=== PATIENT | male | born 1980 | race Caucasian/White ===

== ENCOUNTER → 2020-04-21 16:12 | Outpatient (CLI) | payer BC, SELFPAY ==
--- NOTE | ~2020-04-21 | XR_ITS ---
EXAMINATION: XR thoracic spine 3V DATE: 04/21/2020 18:01 INDICATION: Dorsalgia. TECHNIQUE: 3 views of thoracic spine were obtained. COMPARISON: None. FINDINGS: There is 8 degrees levocurvature of upper thoracic spine. Vertebral body heights and interv ertebral disc heights are normal. There are endplate osteophytes at multiple levels. IMPRESSION: 1. Mild thoracic spondylosis. Reviewed, dictated and finalized at location A.
--- NOTE | ~2020-04-21 | XR_ITS ---
EXAMINATION: XR lumbar spine 2-3V DATE: 04/21/2020 18:01 INDICATION: Low back pain. TECHNIQUE: 3 views of lumbar spine were obtained. COMPARISON: None. FINDINGS: There is 7 degrees dextrocurvature of thoracic lumbar spine. Vertebral body heights and int ervertebral disc heights are normal. There is multilevel facet joint osteoarthritis, severe on the ri ght L5-S1. IMPRESSION: 1. Mild lumbar spondylosis. Reviewed, dictated and finalized at location A. IMPRESSION: 1. Mild lumbar spondylosis.
--- NOTE | ~2020-04-21 | XR_ITS ---
EXAMINATION: XR cervical spine 4-5V DATE: 04/21/2020 18:00 INDICATION: Neck pain. TECHNIQUE: 4 views of cervical spine were obtained. COMPARISON: None. FINDINGS: There is 6 degrees dextrocurvature of cervicothoracic spine. There is hypolordosis of cervi mike spine. Vertebral body heights are normal. There is mildly decreased disc height at C4-C5, C5-C6, and C6-C7. The facet joints are normal. No central canal stenosis or prevertebral soft tissue swellin g. IMPRESSION: 1. Mild cervical spondylosis. Reviewed, dictated and finalized at location A.
--- NOTE | ~2020-04-21 | XR_ITS ---
EXAMINATION: XR shoulder LT min 2V DATE: 04/21/2020 18:01 INDICATION: Left shoulder pain. TECHNIQUE: 4 views of left shoulder were obtained. COMPARISON: None. FINDINGS: Bone alignment is normal. No fracture. The glenohumeral joint is normal. There is mild acro mioclavicular joint osteoarthritis. IMPRESSION: 1. Mild left acromioclavicular joint osteoarthritis. Reviewed, dictated and finalized at location A.
== END ==
PROVIDERS: Visit Provider Family Medicine
DX: M25.512 Pain in left shoulder (principal); M54.2 Cervicalgia; M54.9 Dorsalgia, unspecified; M47.814 Spondylosis without myelopathy or radiculopathy, thoracic region; M47.812 Spondylosis without myelopathy or radiculopathy, cervical region; M47.816 Spondylosis without myelopathy or radiculopathy, lumbar region; M19.012 Primary osteoarthritis, left shoulder
CPT/HCPCS: 72050; 72072; 72100; 73030

== ENCOUNTER 2024-02-07 06:48 | Emergency (ER) | payer OTHER, SELFPAY ==
[2024-02-07 06:54] VITALS: BP 186/111; PULSE 88; RESP 20; TEMP 36.3; O2SAT 99
--- NOTE | 2024-02-07 07:45 | ED.GENADULT ---
HPI - General Adult General Chief complaint: Ear Stated complaint: ear pain Time Seen by Provider: 02/07/24 06:58 History of Present Illness HPI narrative: this is a 43-year-old male presenting with right ear pain. Patient has been having ear pain for the last 2 days. He was seen in urgent care and diagnosed with otitis externa. He was placed on Augmentin, Ciprodex and oral prednisone. Since then he has continued to have severe right ear pain. No fevers. No congestion no other symptoms. patient is not taking anything for pain control. Related Data Allergies Allergy/AdvReac Type Severity Reaction Status Date / Time No Known Allergies Verified 02/07/24 06:49 [facility] Family History Family History Father Hypertension Other Malignant neoplasm of prostate Social History Social History Alcohol intake: current Exam Narrative: APPEARANCE: No apparent distress. Head: Right external ear is unremarkable. Significant swelling of right ear canal consistent with otitis externa. Unable to visualize the tympanic membrane. No tenderness over the mastoid process. EYES: EOMI, NOSE: Atraumatic NECK: Trachea midline RESPIRATORY: No increased rate of breathing CARDIOVASCULAR: RRR, ABDOMINAL: Non-distended MUSCULOSKELETAl: No obvious deformities NEURO: Alert. Moving 4/4 extremities SKIN:: Warm, dry. Normal color PSYCHIATRIC: Normal affect Course Vital Signs Vital signs: Vital Signs Temperature 97.4 F L 02/07/24 06:54 Pulse Rate 88 02/07/24 06:54 Respiratory Rate 20 02/07/24 06:54 Blood Pressure 186/111 H 02/07/24 06:54 Pulse Oximetry 99 02/07/24 06:54 Oxygen Delivery Room Air 02/07/24 06:54 Temperature 97.4 F L 02/07/24 06:54 Pulse Rate 88 02/07/24 06:54 Respiratory Rate 20 02/07/24 06:54 Blood Pressure 186/111 H 02/07/24 06:54 Pulse Oximetry 99 02/07/24 06:54 Oxygen Delivery Room Air 02/07/24 06:54 Medical Decision Making [facility] Narrative Medical decision making narrative: -Course: 43-year-old male otitis externa presenting with ear pain. He not take any pain medication prior to arrival. Patient given pain medication here in the ED with improvement symptoms. Patient is on appropriate medications. Given referral to ENT given return precautions. -DDX includes but is not limited to: Otitis externa, perichondritis, acute otitis media -Co-morbidities complicating care: hypertension -Interventions: Toradol, [place] 5 mg x 2 -Shared decision making / Disposition: discharge -RX: Motrin, Tylenol, oxycodone x6 Vital Signs Vital Signs: Vital Signs Temperature 97.4 F L 02/07/24 06:54 Pulse Rate 88 02/07/24 06:54 Respiratory Rate 20 02/07/24 06:54 Blood Pressure 186/111 H 02/07/24 06:54 Pulse Oximetry 99 02/07/24 06:54 Oxygen Delivery Room Air 02/07/24 06:54 Temperature 97.4 F L 02/07/24 06:54 Pulse Rate 88 02/07/24 06:54 Respiratory Rate 20 02/07/24 06:54 Blood Pressure 186/111 H 02/07/24 06:54 Pulse Oximetry 99 02/07/24 06:54 Oxygen Delivery Room Air 02/07/24 06:54 Discharge Plan Discharge Clinical Impression: Otitis externa Patient Disposition: Home, Self-Care Condition: Stable Instructions: Antibiotic Form, Swimmer's Ear (AC) Additional Instructions: please use Motrin and Tylenol every 8 hours for pain control. Please use oxycodone needed for breakthrough pain. Please follow-up ENT to ensure your condition is improving. Prescriptions: New acetaminophen 500 mg tablet 1,000 mg PO TID PRN (Reason: gerardo) 7 Days Qty: 42 0RF ibuprofen 800 mg tablet 800 mg PO TID PRN (Reason: pain) 7 Days Qty: 21 0RF oxycodone 5 mg tablet 5 mg PO Q4H PRN (Reason: pain) Qty: 6 0RF Follow-up/Referrals: UNKNOWN,DOCTOR [Primary Care Provider] -
[2024-02-07] MEDS: KETOROLAC 30 MG/ML VIAL (*BKC) IM (07:56)
[2024-02-07] MEDS: HYDROcodone/acetaminophen (*CRX) 5-325 MG TABLET 2 TAB PO (07:56)
== END 2024-02-07 08:40 | disposition home or self-care (01) ==
PROVIDERS: Emergency Provider Emergency Medicine
DX: H60.91 Unspecified otitis externa, right ear (principal); I10 Essential (primary) hypertension
CPT/HCPCS: 96372; 99283; A9270; J1885